=== PATIENT | female | born 1960 | race Caucasian/White ===

== ENCOUNTER 2021-06-27 07:33 | Emergency (ER) | payer BC, SELFPAY ==
[2021-06-27 07:35] VITALS: BP 201/86; PULSE 65; RESP 14; TEMP 37; O2SAT 99; BMI 24.2
[2021-06-27 07:38] VITALS: O2SAT 97
--- NOTE | 2021-06-27 07:38 | ED.VIS.CHEST ---
HPI History of Present Illness Chief Complaint: Chest Pain Narrative Narrative: Patient presents with chest pain that started about 7 hours ago it is constant it is sharp and stabbing and pleuritic. She has no abdominal pain, she has no nausea or vomiting. She has no fever chills or cough. The pain does radiate to the back. There is no tearing sensation. No lower extremity edema or calf pain no DVT or PE risk factors. [facility] Medical History (Updated 06/27/21 @ 10:[address] Viral Yeung MD) Chronic bronchitis Allergy/AdvReac Type Severity Reaction Status Date / Time latex Allergy Other Verified 06/27/21 07:34 Social History Smoking Status: Current every day smoker tobacco type: cigarettes ROS ROS ED ROS Narrative Past medical history: Reviewed, includes COPD and anxiety. Medications: Reviewed Social history: Noncontributory Review of systems: All systems negative except as indicated General: No fever Eyes: No visual changes ENT: No upper airway congestion, normal voice Neck: No neck pain Cardiovascular: Chest pain as in HPI Respiratory: No shortness of breath or cough Gastrointestinal: No abdominal pain, nausea vomiting or diarrhea Genitourinary: No dysuria Musculoskeletal: Denies myalgias no difficulty with ambulation Skin: No rash Neurological: No memory loss, confusion or any focal weakness Psych: No recent behavioral changes Hematologic: No easy bleeding or easy bruising EXAM Physical Exam Narrative Exam Narrative: Physical exam General: Patient appears uncomfortable. She appears chronically ill. Head: Normocephalic, Atraumatic Eyes: Conjunctiva not pale ENT: Moist mucous membranes Neck: Supple, Nontender, No lymphadenopathy Cardiovascular: Regular rate, Regular rhythm. I cannot appreciate any murmur. Respiratory: Coarse bilateral breath sounds but she is not tachypneic or in any respiratory distress. Chest wall: She has reproducible retrosternal tenderness near the xiphoid process. No rash in that region. Abdomen: Soft, Nontender, Nondistended Back: Nontender, Normal Inspection. Negative for: CVA tenderness Extremities: Nontender, No edema. No calf pain Skin: Normal color, No rash Neurological: Alert, Normal Strength, Normal Sensation Psychological: Normal affect Const Vital Signs: 06/27/21 07:35 06/27/21 07:38 06/27/21 08:37 Temperature 98.6 F Temperature Source Oral Pulse Rate 65 70 Respiratory Rate 14 22 H Blood Pressure 201/86 H 198/96 H Blood Pressure Mean 124 130 Pulse Ox 99 97 93 Oxygen Delivery Method Room Air Room Air Room Air 06/27/21 10:09 Temperature Temperature Source Pulse Rate 78 Respiratory Rate 19 H Blood Pressure 210/90 H Blood Pressure Mean 130 Pulse Ox 97 Oxygen Delivery Method Room Air MDM MDM MDM Narrative Medical decision making narrative: Patient has a normal work-up, she is asymptomatic after Toradol. She wants to be discharged. I believe this is quite reasonable she has reproducible chest wall pain with a negative work-up. Lab Data Labs: Laboratory Results - last 24 hr 06/27/21 06/27/21 06/27/21 07:50 07:50 07:50 WBC 10.4 RBC 4.91 Hgb 15.7 H Hct 45.7 MCV 93.1 MCH 32.0 MCHC 34.4 RDW Std Deviation 43.8 RDW Coeff of Jamar 12.9 Plt Count MPV 10.8 Immature Gran % (Auto) 0.400 Neut % (Auto) 60.2 Lymph % (Auto) 32.6 [place] % (Auto) 5.2 Eos % (Auto) 1.2 Baso % (Auto) 0.4 Absolute Neuts (auto) 6.3 Absolute Lymphs (auto) 3.40 Nucleated RBC % 0 Platelet Estimate ADEQUATE D-Dimer Quant (PE/DVT) 0.64 H* Sodium 141 Potassium 4.1 Chloride 112 H Carbon Dioxide 24.0 Anion Gap 5 BUN 24 H Creatinine 0.91 Estim Creat Clear Calc 50.70 Est GFR (MDRD) Af Amer 80 Est GFR (MDRD) Non-Af 66 BUN/Creatinine Ratio 26.3 H Glucose 139 H Calcium 9.4 Troponin I High Sens 5 Radiography Diagnostic Testing: Clinical Impression(s) from Imaging Studies Chest CTA 06/27/21 08:21 IMPRESSION: Normal CTA chest examination, without a demonstrated pulmonary embolism or arterial dissection. Electronically Signed: Jd Alba MD at 9:55 EDT , Service support , Chest X-Ray 06/27/21 08:22 IMPRESSION: Hyperinflation. Electronically Signed: Jd Alba MD at 8:42 EDT , Service support , EKG Initial EKG: Attestation: I personally reviewed and interpreted this EKG as follows: Comments: Normal sinus rhythm with a rate of 66. Normal DE and QTc intervals. No ischemic changes. Discharge Plan Triage Chief Complaint: Chest Pain ED Provider: Viral Yeung Dx/Rx/DC Orders Clinical Impression: Acute chest wall pain Instructions: ED Chest Pain, Uncertain Cause, ED Chest Wall Pain, Costochondritis Primary Care Provider: Care Physician,No Primary Referrals: Care Physician,No Primary [Primary Care Provider] - 2 Days Disposition Disposition: Home, Self Care
[2021-06-27] MEDS: Ketorolac 15 MG/ML Vial IV (08:02)
[2021-06-27 08:06] LABS: Absolute Neutrophil Count 6.3 X10^3/uL (2.0-7.7); Basophil# 0.04 X10^3/uL; Basophil% 0.4 % (0-1); Eosinophil# 0.13 X10^3/uL; Eosinophils% 1.2 % (0-5); Hematocrit 45.7 % (37-47); Hemoglobin 15.7 g/dL (12.0-15.0); Lymphocyte % 32.6 % (19-41); Mean Corp Hgb Conc 34.4 g/dL (32-36); Mean Corpuscular Volume 93.1 fL (81-99); Mean Platelet Vol. 10.8 fl (6.2-12.0); Monocyte# 0.54 X10^3/uL; Monocyte% 5.2 % (0-10); NRBC Flagged by Analyzer 0 % (0-5); Neutrophil # 6.29 X10^3/uL (2.7-7.7); Neutrophil % 60.2 % (47-70); POSITIVE COUNT YES; RBC Distribution Width CV 12.9 % (11.6-14.6); RBC Distribution Width SD 43.8 fl (35.1-43.9); Red Blood Count 4.91 M/mm3 (4.2-5.4); White Blood Count 10.4 K/mm3 (4.4-11.0)
[2021-06-27 08:19] LABS: Anion Gap 5 (5-15); BUN 24 mg/dL (7-18); BUN/Creat Ratio 26.3 RATIO (10-20); Calcium,Total 9.4 mg/dL (8.5-10.1); Chloride 112 mmol/L (98-107); Creatinine, Serum 0.91 mg/dL (0.55-1.02); D-Dimer Quantitative (DVT/PE) 0.64 FEU/ug/m (0.27-0.49); EST Glomerular Filtration Rate 66 mL/min (>60); Est Glom Filt Rate - Afr Amer 80 mL/min (>60); Glucose 139 mg/dL (74-106); Potassium 4.1 mmol/L (3.5-5.1); Sodium Level 141 mmol/L (136-145); Troponin-I HS 5 pg/mL (3.0-54.0)
--- NOTE | 2021-06-27 08:21 | CT_ITS ---
STUDY: CTA CHEST REASON FOR EXAM: Female, 60 years old. Chest pain. RADIATION DOSAGE (If Supplied By Facility): CTDIvol = ( 6.77 ) mGy, DLP = ( 181.82 ) mGycm TECHNIQUE: The examination was performed with the intravenous administration of IV 100mL Isovue-370. Post-processing of the angiographic images was performed, with multiplanar reformation and 3D reconstruction. Individualized dose optimization techniques were used for this CT. COMPARISON: Comparison is made with prior chest radiograph done earlier today. FINDINGS: Normal enhancement of the main pulmonary artery and right and left pulmonary arteries. Normal enhancement of the bilateral peripheral pulmonary arteries. There is no demonstrated pulmonary embolism. There is atherosclerotic calcification of the aortic arch with tortuosity. There is no demonstrated aortic dissection. There are calcifications of the coronary arteries. Normal mediastinum. Normal hilar regions. Normal visualized trachea and bronchi. The lungs are well expanded. Normal pulmonary parenchyma. Normal pleura. Normal chest wall structures. There are mild degenerative changes of thoracic spine. Diffuse fatty infiltration of the liver. CT/CTA Chest W/WO Contrast IMPRESSION: Normal CTA chest examination, without a demonstrated pulmonary embolism or arterial dissection. Electronically Signed: Jd Alba MD at 9:55 EDT , Service support ,
--- NOTE | 2021-06-27 08:22 | RAD_ITS ---
STUDY: X-RAY CHEST REASON FOR EXAM: Female, 60 years old. Chest pain TECHNIQUE: Single AP portable view of the chest. COMPARISON: None. FINDINGS: EKG electrodes are seen. There is hyperinflation of the lungs consistent with chronic obstructive lung disease (COPD). There is no demonstrated pleural abnormality. Normal size heart. Normal mediastinum and ingrid. Normal visualized pulmonary arteries. There is atherosclerotic calcification of the aortic arch with tortuosity. Normal visualized thoracic spine. Normal visualized ribs, clavicles, and shoulders. There is no demonstrated abnormality of the visualized soft tissue structures of the upper abdomen. RAD/Chest 1 View (Portable) IMPRESSION: Hyperinflation. Electronically Signed: Jd Alba MD at 8:42 EDT , Service support ,
[2021-06-27 08:28] LABS: Differential Indicated SCAN CRITERIA MET
[2021-06-27 08:29] LABS: Platelet Estimate ADEQUATE (ADEQ)
[2021-06-27 08:37] VITALS: BP 198/96; PULSE 70; RESP 22; O2SAT 93
[2021-06-27 10:09] VITALS: BP 210/90; PULSE 78; RESP 19; O2SAT 97
--- NOTE | 2021-06-27 10:22 | ED.RN ---
provider aware of bp, no new orders given.
== END 2021-06-27 10:35 | disposition home or self-care (01) ==
PROVIDERS: Emergency Provider Emergency Medicine
DX: R07.89 Other chest pain (principal); F17.210 Nicotine dependence, cigarettes, uncomplicated
CPT/HCPCS: 71045; 71275; 80048; 84484; 85025; 85379; 93005; 96374; 99285; Q9967; A4216

== ENCOUNTER 2021-09-13 08:50 | Emergency (ER) | payer BC, SELFPAY ==
[2021-09-13] VITALS (8 sets, daily range): BP systolic 104–240; BP diastolic 85–165; PULSE 82–128; RESP 16–27; TEMP 36.6; O2SAT 96–100; BMI 24.0
--- NOTE | 2021-09-13 08:55 | CT_ITS ---
We are attempting to reach an attending provider to discuss findings. An addendum with communication details will be sent when the communication is complete. EXAM: CT HEAD WITHOUT INTRAVENOUS CONTRAST : 1960 CLINICAL INDICATION: headache TECHNIQUE: Multiple axial images were obtained of the head without intravenous contrast. This CT exam was performed using one or more of the following dose reduction techniques: automated exposure control, adjustment of the mA and/or kV according to patient size, and/or use of iterative reconstruction technique. This report was created using VitaPortal report Multistat technology. COMPARISON: None. FINDINGS: BRAIN AND EXTRA-AXIAL SPACES: There is a subarachnoid hemorrhage in the high left frontal lobe. There is also increased density in the right parietal occipital region which may represent subarachnoid hemorrhage more likely an intraparenchymal contusion. Area on the right measures roughly 1.8 x 0.8 x 1.4 cm. There is no mass-effect or shift identified. There is no extra-axial hemorrhage identified. No evidence of acute infarct. There is preservation of the chaudhary/white matter interface. Posterior fossa structures are unremarkable. Ventricles are appropriate for age. No hydrocephalus. Basal cisterns are patent. BONES/JOINTS: Unremarkable. No discrete lytic or blastic abnormalities. SINUSES: Unremarkable as visualized. Clear. MASTOID AIR CELLS: Unremarkable. Clear. ORBITS: Visualized globes, extraocular muscles, optic nerves and retrobulbar fat appear unremarkable. CT/Brain/Head without Contrast IMPRESSION: Subarachnoid hemorrhage in the high left frontal lobe as well as an intraparenchymal contusion in the right parietal occipital region. There is no mass-effect or shift. There is no extra-axial hemorrhage identified. Individualized dose optimization techniques were used for this CT. at 1050 Reported and signed by: Zbigniew Delacruz MD Electronically Signed: Zbigniew Delacruz MD at 10:49 EST Tel , Service support ,
--- NOTE | 2021-09-13 09:13 | CT_ITS ---
EXAM: CT CERVICAL SPINE WITHOUT INTRAVENOUS CONTRAST : 1960 CLINICAL INDICATION: injury TECHNIQUE: Helically acquired images were obtained of the cervical spine without intravenous contrast. 2D reformatted images were reviewed. This CT exam was performed using one or more of the following dose reduction techniques: automated exposure control, adjustment of the mA and/or kV according to patient size, and/or use of iterative reconstruction technique. This report was created using VIRxSYS report WhoAPI technology. COMPARISON: None. FINDINGS: VERTEBRAE: Unremarkable. No fracture. No traumatic subluxation. No discrete lytic or blastic abnormality. Normal alignment. Normal craniocervical junction and cervicothoracic junction. DISCS/SPINAL CANAL/NEURAL FORAMINA: There is disc space narrowing at C6 - 7. SOFT TISSUES: Unremarkable. No prevertebral soft tissue swelling. LYMPH NODES: Unremarkable. No cervical adenopathy. LUNG APICES: Unremarkable as visualized. Clear. TUBES, LINES AND DEVICES: Endotracheal tube and nasogastric tube are in place. CT/Spine Cervical without Contras IMPRESSION: No acute osseous abnormality of the cervical spine. There are mild degenerative changes with disc space narrowing. Individualized dose optimization techniques were used for this CT. at 1051 Reported and signed by: Zbigniew Delacruz MD Electronically Signed: Zbigniew Delacruz MD at 10:50 EST Tel , Service support ,
--- NOTE | 2021-09-13 09:14 | RAD_ITS ---
INDICATION: intubation EXAMINATION/TECHNIQUE: X-RAY - XR Chest 1 View COMPARISON: 06/27/2021. FINDINGS: Endotracheal tube visualized with the tip 1 cm above the avery would recommend withdrawal approximately 1 cm. Gastric tube visualized with tip in the stomach. Mild prominence of the bronchovascular interstitial lung markings is visualized bilaterally. Peribronchial cuffing and bilateral hilar prominence is seen that demonstrates no change. No evidence of focal airspace opacification. No evidence of focal lung infiltrate or consolidation. The costophrenic angles are clear bilaterally with no evidence of pleural effusion. No evidence of pneumothorax. Cardiac silhouette not enlarged. The bones are unremarkable for the patient''s age. RAD/Chest 1 View (Portable) IMPRESSION: Endotracheal tube visualized with the tip 1 cm above the avery would recommend withdrawal approximately 1 cm. Electronically Signed: Geovany Maldonado MD at 9:29 EST Tel , Service support ,
--- NOTE | 2021-09-13 09:24 | ED.RN ---
Addendum entered by Selene Villegas 09/13/21 10:07: times off by 1 hour--ex [id number] Original Note: 0806--IV TO LT HAND PER RAYMUNDO RN, 20 ETOMIDATE AND 50 ROCURONIUM ADMINISTERED 0807 61/38,84.20.99--6 LITERS 0808 INTUBATE 7.5 ET TUBE POSITIVE COLOR CHANGE. 23 AT THE LIP. BILATERAL BREATH SOUNDS 0811 111/49, 115, 16 98. NG PLACED X-RAY CONFIRMED 0814 VERSED5 MG C-COLLAR PLACED CHEST X-RAY [address]
--- NOTE | 2021-09-13 09:30 | NURSING ---
0926 CALLED [facility] FOR TRANSFER. TALKED TO JUAN
[2021-09-13] MEDS: 0.9% Normal Saline 1,000 ML 150 ML IV (09:37)
[2021-09-13] MEDS: Etomidate 20 MG/10 ML Vial IV (09:38)
[2021-09-13] MEDS: Midazolam 5 MG/ML Syringe IV ×3 (09:38→10:59)
[2021-09-13] MEDS: Rocuronium Bromide 50 MG/5 ML Vial IV (09:38)
[2021-09-13] MEDS: 0.9% Normal Saline 1,000 ML 1000 ML IV (09:38)
[2021-09-13 09:48] LABS: Bacteria 0 SEEN /hpf (None Seen); Mucous, Urine 0 SEEN /hpf (<or=2+); Red Blood Cells-Urine 0 SEEN /hpf (0-5)
--- NOTE | 2021-09-13 09:51 | ED.RN ---
unable to complete nih. pt intubated at this time. pt a bleed. plan to fly to [facility]
[2021-09-13 09:52] LABS: Absolute Lymphocyte Count 4.65 X10^3/uL (0.83-4.51); Absolute Neutrophil Count 11.7 X10^3/uL (2.0-7.7); Basophil# 0.06 X10^3/uL; Basophil% 0.4 % (0-1); Eosinophil# 0.03 X10^3/uL; Eosinophils% 0.2 % (0-5); Hematocrit 50.2 % (37-47); Hemoglobin 17.5 g/dL (12.0-15.0); Lymphocyte # 4.65 X10^3/ul (0.83-4.51); Lymphocyte % 27.2 % (19-41); Mean Corp Hgb Conc 34.9 g/dL (32-36); Mean Corpuscular Hgb 31.7 pg (27.0-32.0); Mean Corpuscular Volume 90.9 fL (81-99); Mean Platelet Vol. 9.2 fl (6.2-12.0); Monocyte# 0.49 X10^3/uL; Monocyte% 2.9 % (0-10); NRBC Flagged by Analyzer 0 % (0-5); Neutrophil # 11.73 X10^3/uL (2.7-7.7); Neutrophil % 68.6 % (47-70); Platelet Count 279 K/mm3 (150-450); RBC Distribution Width CV 12.6 % (11.6-14.6); RBC Distribution Width SD 41.9 fl (35.1-43.9); Red Blood Count 5.52 M/mm3 (4.2-5.4); White Blood Count 17.1 K/mm3 (4.4-11.0)
[2021-09-13 09:53] LABS: Color, Urine Yellow (Yellow); Glucose, Dipstick 100 mg/dl (Normal); Ketone-Dipstick Negative (Negative); Leukocyte Esterase-Dipstick Negative /ul (Negative); Nitrite-Dipstick Negative (Negative); Occult Blood-Urine 25 /ul (Negative); Protein-Dipstick 500 mg/dl (Negative); Urine Bilirubin Dipstick Negative (Negative); Urine Clarity Sl. Cloudy (Clear); Urine Urobilinogen Normal (Normal)
[2021-09-13] MEDS: Nicardipine HCl-0.9% Sod Chlor 20 MG/200 ML IV.SOLN 50 MG IV (09:55)
[2021-09-13 09:56] LABS: Prothrombin Time (Protime)PT. 12.1 SECONDS (11.7-14.9)
[2021-09-13 09:58] LABS: Partial Thromboplast Time 50.9 Seconds (24.1-36.2)
[2021-09-13 10:02] LABS: White Blood Cells 0-5 SEEN /hpf (0-5)
[2021-09-13 10:03] LABS: Squamous Epithelial Cells - UA 0-5 SEEN /hpf (5-10)
[2021-09-13 10:05] LABS: Allen Test Positive; Base Excess -1 mmol/L (-2 to +2); Bicarbonate 25.3 mmol/L (22-26); Blood Gas Specimen Type ART; FI02 30; Mode AC; O2 Delivery Device Adult Vent; PEEP 5; PO2 81 mmHG (75-100); RR 16; SITE L Radial; SO2 95 % (95-99); Total Carbon Dioxide 27 mmol/L; Vt 350; pCO2 47.7 mmHg (35-45); pH 7.33 (7.35-7.45)
--- NOTE | 2021-09-13 10:05 | EDS_ITS ---
HPI History of Present Illness Chief Complaint: Unresponsive Informant: patient Narrative Narrative: 60-year-old female arriving via EMS to the emergency room with the chief complaint of headache. Reportedly the patient has had a occipital headache for about a week. Today she reportedly fell into the [place] tree or passed out is unclear. She reportedly called crawled to the bathroom where she was found by her granddaughter. EMS notes that that she is intermittently unconscious and was removing the c-collar. Daughter notes no known medications or medical problems. She is a smoker. [facility] Medical History (Updated 09/13/21 @ 10:[address] Yoseph Marin DO) Chronic bronchitis unable to obtain Allergy/AdvReac Type Severity Reaction Status Date / Time latex Allergy Other Verified 09/13/21 08:59 unable to obtain Social History (Updated 09/13/21 @ 10:[address] Yoseph Marin DO) Smoking Status: Current every day smoker tobacco type: cigarettes substance use type: does not use ROS ROS ED Review of Systems ROS Unobtainable: due to mental status EXAM Physical Exam Narrative Exam Narrative: The patient is laying on her right side holding her head screaming my head my head Const Vital Signs: 09/13/21 08:50 09/13/21 08:51 09/13/21 09:21 Temperature 97.9 F Temperature Source Temporal Pulse Rate 110 H 82 Respiratory Rate 20 H 20 H Respiratory Effort Mechanically Ventilated Blood Pressure 134/101 H 104/85 H Blood Pressure Mean 112 91 Pulse Ox 98 98 Oxygen Delivery Method Non-Rebreather Room Air Ambu-Bag 09/13/21 09:30 09/13/21 09:52 09/13/21 10:23 Temperature Temperature Source Pulse Rate 98 97 89 Respiratory Rate 16 18 16 Respiratory Effort Blood Pressure 134/101 H 240/165 H 154/110 H Blood Pressure Mean 112 190 124 Pulse Ox 100 96 99 Oxygen Delivery Method Mechanical Ventilator Mechanical Ventilator 09/13/21 10:25 Temperature Temperature Source Pulse Rate 84 Respiratory Rate 16 Respiratory Effort Blood Pressure 137/94 H Blood Pressure Mean 108 Pulse Ox 99 Oxygen Delivery Method Mechanical Ventilator Positive well nourished and well developed General Appearance ED: well developed HEENT Reports normocephalic, head/scalp atraumatic, TM's clear and moist mucous membranes Negative for trauma Tympanic Membrane ED: Yes TM's clear Eyes PERRL and EOMs intact bilaterally Neck no lymphadenopathy, supple and no JVD Resp normal respiratory effort and clear to auscultation bilaterally Cardio regular rate, regular rhythm and no murmurs GI normal to inspection, nondistended, normoactive bowel sounds and non-tender Palpation: soft Back/Spine no CVA tenderness and normal ROM Extremity normal to inspection General Extremety ED: Negative for edema General Extremity: Negative for edema Neuro Neuro Narrative: Patient moving all extremities Sensorium / Orientation: lethargic Skin no rashes or lesions noted and no wounds MDM MDM MDM Narrative Medical decision making narrative: Upon arrival in the emergency department patient was evaluated. Decision to take her right to CT was made. While attempting to get the patient onto the CT table she vomited and aspirated. We brought her back to the emergency room where she underwent rapid sequence intubation. Patient received etomidate and rocuronium followed by Versed for sedation. A endotracheal tube was placed on the first attempt without any difficulty. There was evidence of aspiration below the vocal cords. Tube placement was confirmed by lung auscultation and color change capnography. My interpretation of the chest x-ray is the endotracheal tube is 1 cm above the avery and was pulled back 1 cm to 22 cm. OG shows adequate placement. She was taken back to CT which demonstrates right occipital and left temporal subarachnoid hemorrhage. I do not see any blood in her dependent cistern. Patient brought back to the emergency room started on Precedex for sedation Unasyn for aspiration and Cardene for blood pressure control. Case was discussed with the family as well as [facility] neurosurgery. [facility] was contacted for transfer. Lab Data Attestation: I reviewed the patient's lab results. Labs: Laboratory Results - last 24 hr 09/13/21 09/13/21 09/13/21 09:10 09:10 09:10 WBC 17.1 H RBC 5.52 H Hgb 17.5 H Hct 50.2 H MCV 90.9 MCH 31.7 MCHC 34.9 RDW Std Deviation 41.9 RDW Coeff of Jamar 12.6 Plt Count 279 MPV 9.2 Immature Gran % (Auto) 0.700 Neut % (Auto) 68.6 Lymph % (Auto) 27.2 [place] % (Auto) 2.9 Eos % (Auto) 0.2 Baso % (Auto) 0.4 Absolute Neuts (auto) 11.7 H Absolute Lymphs (auto) 4.65 H Nucleated RBC % 0 PT 12.1 INR 1.0 APTT 50.9 H Sodium 138 Potassium 3.4 L Chloride 104 Carbon Dioxide 24.0 Anion Gap 10 BUN 26 H Creatinine 1.13 H Estim Creat Clear Calc 46.45 Est GFR (MDRD) Af Amer 63 Est GFR (MDRD) Non-Af 52 L BUN/Creatinine Ratio 23.0 H Glucose 196 H Calcium 9.8 Total Bilirubin 0.40 AST 23 ALT 44 Alkaline Phosphatase 114 Troponin I High Sens 11 Total Protein 8.9 H Albumin 4.1 Globulin 4.8 H Albumin/Globulin Ratio 0.9 Urine Color Urine Clarity Urine pH Ur Specific [place] Urine Protein Urine Glucose (UA) Urine Ketones Urine Occult Blood Urine Nitrite Urine Bilirubin Urine Urobilinogen Ur Leukocyte Esterase Urine RBC Urine WBC Ur Squamous Epith Cells Urine Bacteria Urine Mucus 09/13/21 09:37 WBC RBC Hgb Hct MCV MCH MCHC RDW Std Deviation RDW Coeff of Jamar Plt Count MPV Immature Gran % (Auto) Neut % (Auto) Lymph % (Auto) [place] % (Auto) Eos % (Auto) Baso % (Auto) Absolute Neuts (auto) Absolute Lymphs (auto) Nucleated RBC % PT INR APTT Sodium Potassium Chloride Carbon Dioxide Anion Gap BUN Creatinine Estim Creat Clear Calc Est GFR (MDRD) Af Amer Est GFR (MDRD) Non-Af BUN/Creatinine Ratio Glucose Calcium Total Bilirubin AST ALT Alkaline Phosphatase Troponin I High Sens Total Protein Albumin Globulin Albumin/Globulin Ratio Urine Color Yellow Urine Clarity Sl. Cloudy Urine pH 7.0 Ur Specific [place] 1.010 Urine Protein 500 H Urine Glucose (UA) 100 H Urine Ketones Negative Urine Occult Blood 25 H Urine Nitrite Negative Urine Bilirubin Negative Urine Urobilinogen Normal Ur Leukocyte Esterase Negative Urine RBC 0 SEEN Urine WBC 0-5 SEEN Ur Squamous Epith Cells 0-5 SEEN Urine Bacteria 0 SEEN Urine Mucus 0 SEEN ABG Data ABG results: ABG 09/13/21 09:59 Specimen Type ART Sample Site L Radial pH 7.33 L Bicarbonate Actual 25.3 Total CO2 27 Base Excess -1 O2 Saturation 95 O2 % 30 ABG pCO2 47.7 H ABG pO2 81 Matthias Test Positive Respiration Rate 16 O2 Delivery Device Adult Vent Vent Mode AC Tidal Volume 350 POC PEEP 5 Radiography Diagnostic Testing: Clinical Impression(s) from Imaging Studies Chest X-Ray 09/13/21 09:14 IMPRESSION: Endotracheal tube visualized with the tip 1 cm above the avery would recommend withdrawal approximately 1 cm. Electronically Signed: Geovany Maldonado MD at 9:29 EST Tel , Service support , Critical Care Time Critical Care Time: Yes Critical care time (excluding procedures): 30-74 minutes (35), Including time spent:, Discussing w/Patient &/or Family/Seismic Engineer, Discussing w/Consultants, Arranging Admission or Transfer and Performing Direct Patient Care at Bedside Discharge Plan Triage Chief Complaint: Unresponsive ED Provider: Yoseph Marin Dx/Rx/DC Orders Clinical Impression: Acute respiratory failure, Subarachnoid hemorrhage, Hypertensive emergency Primary Care Provider: Care Physician,No Primary Referrals: Care Physician,No Primary [Primary Care Provider] - Disposition Disposition: Acute Care Hospital Discharge Location: [facility]
[2021-09-13 10:12] LABS: ALB/GLOB Ratio 0.9 RATIO (0.9-2.4); AST(SGOT) 23 U/L (15-37); Alanine Aminotransfer ALT/SGPT 44 U/L (13-56); Albumin, Serum 4.1 g/dL (3.2-5.0); Alkaline Phosphatase 114 U/L (45-117); Anion Gap 10 (5-15); BUN 26 mg/dL (7-18); Calcium,Total 9.8 mg/dL (8.5-10.1); Chloride 104 mmol/L (98-107); Creatinine, Serum 1.13 mg/dL (0.55-1.02); EST Glomerular Filtration Rate 52 mL/min (>60); Est Glom Filt Rate - Afr Amer 63 mL/min (>60); Estimated Creatinine Clearance 46.45 ml/min; Globulin 4.8 g/dL (2.2-4.2); Glucose 196 mg/dL (74-106); Potassium 3.4 mmol/L (3.5-5.1); Protein, Total 8.9 g/dL (6.4-8.2); Sodium Level 138 mmol/L (136-145); Troponin-I HS 11 pg/mL (3.0-54.0)
--- NOTE | 2021-09-13 11:01 | CM.ED ---
SW Note Referral Source: Case Find Referral Reason: [facility] for patient, support for family SW spoke to Hospital Fuel Cell Repairer, Maddie. Maddie updated this property underwriter on the status of patient and that she will be transferred to [facility]. SW provided emotional support to patient's family (daughter and ) while they were in the ED. SW remains available if needs arise. Plan: Emotional support May SANDERSON
== END 2021-09-13 10:37 | disposition short-term general hospital (02) ==
PROVIDERS: Emergency Provider Emergency Medicine
DX: I60.9 Nontraumatic subarachnoid hemorrhage, unspecified (principal); J96.00 Acute respiratory failure, unspecified whether with hypoxia or hypercapnia; I16.1 Hypertensive emergency; F17.210 Nicotine dependence, cigarettes, uncomplicated
CPT/HCPCS: 31500; 36415; 36600; 70450; 71045; 72125; 80053; 81001; 82803; 84484; 85025; 85610; 85730; 87040; 94002; 96365; 96366; 96368; 99251; 99285; J7030; J7050; A4216; G0463; J0295